=== PATIENT | male | born 1965 | race Caucasian/White ===

== ENCOUNTER 2017-08-14 09:52 | Day surgery (SDC) | payer BC ==
[2017-08-14] MEDS ORDERED: LR 1,000 ML IV ONE (10:09)
[2017-08-14] MEDS ORDERED: LIDOCAINE 1% 2 ML INJ ID PRN (10:09)
[2017-08-14] MEDS ORDERED: LIDOCAINE 2% JELLY 20 ML (UROJECT) ONE (10:32)
[2017-08-14] MEDS ORDERED: ceFAZolin 2 GM/SWFI 2 GM/20 ML SYR IVP ONE (11:02)
--- NOTE | 2017-08-14 11:02 | PDHPUP ---
History & Physical Update H&P update statement: This history and physical update is based on an assessment of the patient which was completed after admission or registration (within 24 hours), but prior to the surgery/procedure. H&P update: H&P reviewed & patient examined, no change in patient's condition since H&P completed
--- NOTE | 2017-08-14 11:09 | PDANEPAE ---
ANE History of Present Illness Patient presents for laser photovaporization of the prostate ANE Past Medical History - Cardiovascular History Hx Hypertension: Yes Hx Arrhythmias: No Hx Chest Pain: No Hx Coronary Artery / Peripheral Vascular Disease: No Hx CHF / Valvular Disease: No Hx Palpitations: No Cardiovascular History Comment: BP stable - Pulmonary History Hx COPD: No Hx Asthma/Reactive Airway Disease: No Hx Recent Upper Respiratory Infection: No Hx Oxygen in Use at Home: No Hx Sleep Apnea: No Sleep Apnea Screening Result - Last Documented: Negative - Neurologic History Hx Cerebrovascular Accident: No Hx Seizures: No Hx Dementia: No Neurologic History Comment: 3 month H/A started late April- no deficits. F/U w/ CT scan unremarkable. - Endocrine History Hx Diabetes: No - Renal History Hx Renal Disorders: Yes Renal History Comment: BPH - Liver History Hx Hepatic Disorders: No - Neurological & Psychiatric Hx Hx Neurological and Psychiatric Disorders: Yes Neurological / Psychiatric History Comment: kyphosis -arthritic degeneration. - Cancer History Hx Cancer: No - Congenital Disorder History Hx Congenital Disorders: No - GI History Hx Gastrointestinal Disorders: Yes Gastrointestinal History Comment: GERD -controlled w Rx - Other Health History Other Health History: none - Chronic Pain History Chronic Pain: No - Surgical History Prior Surgeries: T and A 1970. wisdom teeth 80's. colonoscopy- [place] ANE Review of Systems Review of Systems: - Exercise capacity METS (RN): 4 METS ANE Patient History - Allergies Allergies/Adverse Reactions: latex Allergy (Verified 08/14/17 10:35) Rash - Home Medications Home medications: home medication list seen and reviewed Home Medications: Clomiphene Citrate 08/04/17 [Last Taken 08/13/17 21:00] Famotidine 08/04/17 [Last Taken 08/13/17 18:00] Terazosin HCl 08/04/17 [Last Taken 08/13/17 07:30] Trandolapril 08/04/17 [Last Taken 08/13/17 21:00] - NPO status NPO Status: no food or drink >8 hours NPO Since - Liquids (Date): 08/14/17 NPO Since - Liquids (Time): 08:00 NPO Since - Solids (Date): 08/13/17 NPO Since - Solids (Time): 20:30 - Anes Hx Anes Hx: no prior problems - Smoking Hx Smoking Status: Never smoked ANE Labs/Vital Signs - Vital Signs Blood Pressure: 145/86 Heart Rate: 67 Respiratory Rate: 16 O2 Sat (%): 96 Height: 172.72 cm Weight: 70.307 kg ANE Physical Exam - Airway Neck exam: FROM Mallampati Score: Class 2 Mouth exam: normal dental/mouth exam - Pulmonary Pulmonary: no respiratory distress - Cardiovascular Cardiovascular: regular rate and rhythym - ASA Status ASA Status: II ANE Anesthesia Plan Anesthesia Plan: general endotracheal anesthesia (rba discussed)
--- NOTE | 2017-08-14 11:24 | GHP ---
[f rep st] PREOP HISTORY AND PHYSICAL ADMISSION DIAGNOSIS: BPH with urinary obstruction. HISTORY OF PRESENT ILLNESS: This is a gentleman who has had significant BPH with outlet obstruction. He is admitted for GreenLight photovaporization of the prostate with possible TURP. He has had postvoid residuals of excess of 200 mL and he has had PSA value most recently of 3.18, and he is admitted for GreenLight photovaporization of the prostate, possible TURP. He has had a 4K score of 5% and a prostate ultrasound revealed an intravesical lobe of the prostate and the prostate was approximately 70 g, PSA density 0.05. In 2013, he had a urodynamic evaluation that showed a maximum volume of his bladder 488 mL and his urine flow peak at that time was 7 mL/sec. He had obstruction with high-pressure voiding, normal EMG assessment. The nomogram at that time said that he may have somewhat of a weak detrusor response, but appeared to be obstructed based on clinical assessment evaluation. PAST HISTORY: Significant for lower urinary tract symptoms, erectile dysfunction, gastric reflux, hypertension, hypercholesterolemia, and nocturia. PAST SURGERIES: Tonsillectomy. MEDICATIONS: Include clomiphene citrate, famotidine, terazosin, trandolapril. ALLERGIES: None. FAMILY HISTORY: Significant for heart disease and hypertension. SOCIAL HISTORY: Consumes alcohol on a daily basis. Nonsmoker. REVIEW OF SYSTEMS: Negative cardiac, respiratory, GI, and endocrine. PHYSICAL EXAMINATION: VITAL SIGNS: When he was in the office showed a blood pressure 157/79. HEENT: Normal. CHEST: Clear. HEART: Regular rate and rhythm. ABDOMEN: Normal. No organomegaly, rebound, or guarding. LOWER EXTREMITIES: Normal. PLAN: He is admitted for the GreenLight photovaporization of the prostate. /[id number]/MODL MTDD
[2017-08-14] MEDS ORDERED: PROPOFOL 200 MG/20 ML VIAL ONE (11:29)
[2017-08-14] MEDS ORDERED: fentaNYL 100 MCG/2 ML INJ ONE ×2 (11:29→11:57)
[2017-08-14] MEDS ORDERED: SUCCINYLCHOLINE CHLORIDE*ANESTHESIA ONLY*200 MG/10 ML SYR IVP ONE (11:29)
[2017-08-14] MEDS ORDERED: LIDOCAINE 2% 5 ML SDV ONE (11:29)
[2017-08-14] MEDS ORDERED: ROCURONIUM 50 MG/5 ML VIAL ONE (11:53)
[2017-08-14] MEDS ORDERED: ONDANSETRON 4 MG/2 ML VIAL ONE (12:01)
[2017-08-14] MEDS ORDERED: DEXAMETHASONE 4 MG/ML VIAL ONE (12:01)
[2017-08-14] MEDS ORDERED: SUGAMMADEX SODIUM 200 MG/2 ML VIAL IVP ONE (12:52)
--- NOTE | 2017-08-14 12:59 | POSTOPPROG ---
Post Op Note Date of Operation: 08/14/17 Surgeon: Manjeet Fisher Anesthesia: LMA Pre-op Diagnosis: bph Post-op Diagnosis: bph Procedure: pvp Findings: dictated Inf/Abcess present in the surg proc area at time of surgery?: No EBL: Minimal
[2017-08-14] MEDS ORDERED: NALOXONE HCL 0.4 MG/ML INJ IVP PRN (13:12)
[2017-08-14] MEDS ORDERED: HYDROCODONE/APAP 5/325 TAB PO PRN (13:12)
[2017-08-14] MEDS ORDERED: ONDANSETRON 4 MG/2 ML VIAL IVP PRN (13:12)
[2017-08-14] MEDS ORDERED: LR 500 ML IV PRN (13:12)
[2017-08-14] MEDS ORDERED: OXYCODONE/APAP 5/325 TAB PO PRN (13:12)
[2017-08-14] MEDS ORDERED: fentaNYL 100 MCG/2 ML INJ IVP PRN (13:12)
--- NOTE | 2017-08-14 13:13 | POSTANESTH ---
Post Anesthetic Evaluation Cardiovascular Status: Similar to Pre-Op Cond Respiratory Status: Similar to Pre-op Cond. Level of Consciousness/Mental Status: Can Participate in Eval Pain Control: Adequate, Prn Tx Ordered Nausea/Vomiting Control: Adequate, Prn Tx Ordered Complications Possibly Related to Anesthesia: None Noted
[2017-08-14] MEDS ORDERED: LABETALOL HCL 5 MG/ML 20 ML MDV ONE (13:18)
[2017-08-14] MEDS: LABETALOL HCL 50 MG/10 ML SYR IVP PRN ×2 (13:20→13:40)
--- NOTE | 2017-08-14 13:34 | GOP ---
[f rep st] OPERATIVE REPORT DATE OF OPERATION: 08/14/2017 SURGEON: Manjeet Fisher MD PREOPERATIVE DIAGNOSIS: Benign prostatic hypertrophy with urinary obstruction. POSTOPERATIVE DIAGNOSIS: Benign prostatic hypertrophy with urinary obstruction. PROCEDURE PERFORMED: GreenLight photovaporization of the prostate. FINDINGS: DESCRIPTION OF PROCEDURE: Gentleman after undergoing anesthesia, was prepped and draped in normal st erile fashion, appropriate time-out. His meatus was dilated to a 30-[place] Shankar and then the re sectoscope was passed up into his bladder under direct vision. He had lateral lobar hypertrophy, int ravesical lobe. At that point, with the XPS fiber set at 80 ayala, the laserotomies at the 2 and 10 o'clock positions, and at that point, increased the wattage to 120 and then eventually to 160 ayala. I vaporized the left lateral lobe and left portion of the posterior lobe and intravesical lobe, then the right lateral lobe, right portion of the posterior lobe, and the intravesical lobe. At that poi nt, at the end of the lasering procedure, there were 242,[id number] joules used. Total laser time 30 minute s, and there was no bleeding. Bladder was normal. Ureteral orifices preserved. External sphincter approximated at the midline symmetrically. Verumontanum preserved. At that point, I did fill his bl adder and with a Crede maneuver, he had an excellent urine flow. Uro-Jet placed in the urethra and a 22 three-way catheter passed in the bladder, 50 cc balloon inflated, and irrigated clear. He will b e discharged home with a catheter in place and I will have him remove the catheter tomorrow at home a nd follow up with me in 3 weeks. No specimen obtained and no complications encountered. /[id number]/MODL
[2017-08-14 13:53] VITALS: TEMP 98.4
[2017-08-14 14:26] VITALS: BP 149/79; PULSE 74; RESP 14; O2SAT 94
== END 2017-08-14 15:07 | disposition home or self-care (01) ==
LOC: FSGY 09:52
PROVIDERS: ATTEND Specialist
PROC: 0V508ZZ Destruction of Prostate, Via Natural or Artificial Opening Endoscopic (ICD-10-PCS; principal; 2017-08-14 11:15)
DX: N40.1 Benign prostatic hyperplasia with lower urinary tract symptoms (principal); N13.8 Other obstructive and reflux uropathy; K21.9 Gastro-esophageal reflux disease without esophagitis; I10 Essential (primary) hypertension; E78.00 Pure hypercholesterolemia, unspecified; N52.9 Male erectile dysfunction, unspecified
CPT/HCPCS: J0330; J0690; J1100; J2405; J2704; J3010; J3490